=== PATIENT | female | born 1960 | race Two or more races ===

== ENCOUNTER → 2016-07-19 | Outpatient (CLI) | payer MEDICAID ==
--- NOTE | 2016-07-19 23:02 | DX ---
DEXA Bone Mineral Densitometry Clinical Indications: Baseline study for osteoporosis in a postmenopausal female Comparison: None Technique: Bone Mineral Densitometry (BMD) by Dual Energy X-Ray Absorptiometry (DEXA) was performed utilizing the [employer] scanner. The lumbar spine was evaluated in the AP projection. The bilat eral hips and forearm were evaluated in the AP projection. Vertebral fracture assessment was also pe rformed. AP Lumbar Spine: The L1, L2, L3 and L4 vertebral bodies were evaluated. BMD: 1.235 gm/cm2 T-score: 0.3 SD Z-score: 0.9 SD AP Left Hip: Total BMD: 1.114 gm/cm2 T-score: 0.8 SD Z-score: 1.4 SD AP Right Hip: Total BMD: 1.11 gm/cm2 T-score: 0.8 SD Z-score: 1.3 SD AP Left Forearm, 07/04: BMD: 0.914 gm/cm2 T-score: 0.4 SD Z-score: 0.9 SD Vertebral Fracture Assessment: No significant fracture deformity. No prevertebral aortic calcificati on, significant marginal bone spurring, facet arthrosis, or intrinsic vertebral body sclerosis that would effect the accuracy of the lumbar spine BMD measurement. Conclusion: Considering the lowest measured site, the patient normal. The ten year FRAX risk for any major osteoporotic fracture , which excludes the risk for a wrist frac ture, is 5.3 % and for a hip fracture is 0.1 %. To prevent osteoporosis and to promote the patient's bone density, the following recommendations shou ld be considered: 1. Pursue a regular regimen of weightbearing and muscle-strengthening exercises in order to reduce th e risk of falls and fractures (as tolerated by the patient's general medical condition). 2. Ensure that daily dietary calcium uptake is maximized. 3. Consider checking the serum vitamin D level. Ensure that intake of vitamin D is 400 to 800 interna tional units per day. 4. Consider follow up DEXA scan in two years to assess the rate of bone loss in this patient.
== END ==
LOC: FIMAGING 10:28
PROVIDERS: ATTEND Internal Medicine
DX: Z13.820 Encounter for screening for osteoporosis (principal); Z78.0 Asymptomatic menopausal state